=== PATIENT | female | born 1990 | race African-American/Black ===

== ENCOUNTER 2020-10-23 14:15 | Emergency (ER) | payer OTHER ==
[~2020-10-23] VITALS: Ht 162.6 cm; Wt 112.0 kg
[2020-10-23 16:36] LABS: CLARITY URINE CLOUDY (CLEAR); COLOR URINE YELLOW (YELLOW); KETONES URINE TRACE (NEGATIVE); LEUKOCYTE ESTERASE URINE NEGATIVE (NEGATIVE); NITRITE URINE NEGATIVE (NEGATIVE); OCCULT BLOOD URINE 2+ (NEGATIVE); PH URINE 5.5 (4.5-8.0); PROTEIN URINE NEGATIVE (NEGATIVE); SPECIFIC GRAVITY URINE 1.025 (1.005-1.030); UROBILINOGEN URINE 0.2 E.U./dL (0.2-1.0)
[2020-10-23 17:23] LABS: CHLORIDE 108 mEq/L (98-107)
[2020-10-23 17:26] LABS: BASOPHILS % 0.3 % (0.0-2.0); EOSINOPHILS % 0.3 % (0.0-5.0); HEMATOCRIT. 37.4 % (36.0-48.0); LYMPHOCYTES % 7.9 % (20.0-50.0); MEAN CORPUSCULAR VOLUME 85.9 fL (81.0-99.0); MEAN PLATELET VOLUME 9.2 fl (7.4-10.4); MONOCYTES % 3.5 % (2.0-8.0); PLATELET 271 x1000/uL (130-400); RED BLOOD CELL COUNT 4.36 mill/uL (4.2-5.4); RED CELL DISTRIBUTION WIDTH 12.4 % (11.6-14.6)
[2020-10-23 17:31] LABS: PROTHROMBIN TIME 11.1 sec (9.6-11.0)
[2020-10-23 17:39] LABS: HCG SCREEN NEGATIVE
[2020-10-23] MEDS: SODIUM CHLORIDE 0.9% 1,000 ML IV ONE (19:47)
[2020-10-23] MEDS: PANTOPRAZOLE SODIUM 40 MG/VIAL IV STA (19:47)
[2020-10-23] MEDS ORDERED: PROT40 PO (19:57)
[2020-10-23] MEDS ORDERED: DICY20TA11 MT (19:57)
[2020-10-23] MEDS ORDERED: ONDA4TAB11 PO (19:57)
[2020-10-23] MEDS: PANTOPRAZOLE 40MG DR TABLET PO ONE (20:17)
[2020-10-23] MEDS: DICYCLOMINE HCL 10MG CAPSULE PO ONE (20:18)
[2020-10-23] MEDS: ONDANSETRON 4MG ODT PO ONE (20:18)
[2020-10-23 20:22] VITALS: BP 138/76
== END 2020-10-23 20:25 | disposition home or self-care (01) ==
LOC: ER 15:49
DX: R11.2 Nausea with vomiting, unspecified (principal); R10.11 Right upper quadrant pain; E11.9 Type 2 diabetes mellitus without complications; Z86.39 Personal history of other endocrine, nutritional and metabolic disease
CPT/HCPCS: 36415; 76705; 80053; 81003; 81025; 83690; 84703; 85025; 85610; 99284; J7030; Q0162